=== PATIENT | male | born 1950 | race Two or more races ===

== ENCOUNTER → 2016-06-11 | Outpatient (REF) | payer MEDICARE ==
[2016-06-11 13:32] LABS: ALBUMIN 3.2 GM/DL (3.2-5.2); ALBUMIN/GLOBULIN RATIO 1.07 (1.00-1.93); ALKALINE PHOSPHATASE 102 U/L (45-117); ALT/SGPT 16 U/L (12-78); ANION GAP 7 MEQ/L (8-16); AST/SGOT 11 U/L (15-37); BILIRUBIN,TOTAL 0.3 MG/DL (0.2-1.0); BLOOD UREA NITROGEN 13 MG/DL (7-18); CALCIUM LEVEL 8.4 MG/DL (8.8-10.2); CARBON DIOXIDE LEVEL 29 MEQ/L (21-32); CHLORIDE LEVEL 105 MEQ/L (98-107); CHOLESTEROL LEVEL 146 MG/DL (<200); CREATININE FOR GFR 0.64 MG/DL (0.70-1.30); GLOMERULAR FILTRATION RATE > 60.0 (>49); GLUCOSE, FASTING 94 MG/DL (80-110); POTASSIUM SERUM 4.1 MEQ/L (3.5-5.1); SODIUM LEVEL 141 MEQ/L (136-145); TOTAL PROTEIN 6.2 GM/DL (6.4-8.2); TRIGLYCERIDES LEVEL 61 MG/DL (<150)
[2016-06-11 13:50] LABS: ADD MORPHOLOGY? YES; BASO % 0.2 % (0.0-1.0); EOS # 0.1 K/mm3 (0.0-0.50); EOS % 1.7 % (0.0-3.0); LARGE UNSTAINED CELL # 0.1 K/mm3 (0.0-0.4); LYMPH # 1.5 K/mm3 (1.5-4.5); LYMPH % 18.6 % (24.0-44.0); MEAN CORPUSCULAR HEMOGLOBIN 26.9 pg (27.0-33.0); MEAN CORPUSCULAR HGB CONC 30.5 g/dl (32.0-36.5); MEAN CORPUSCULAR VOLUME 88.2 fl (80.0-96.0); MONO # 0.3 K/mm3 (0.0-0.8); MONO % 4.6 % (0.0-5.0); NEUTROPHILS # 5.5 K/mm3 (1.8-7.7); NEUTROPHILS % 73.9 % (36.0-66.0); PLATELET COUNT, AUTOMATED 261 k/mm3 (150-450); RED CELL DISTRIBUTION WIDTH 14.9 % (11.5-14.5); WHITE BLOOD COUNT 7.4 K/mm3 (4.0-10.0)
[2016-06-11 14:10] LABS: CALCIUM OXALATE CRYSTALS SMALL
[2016-06-11 14:22] LABS: ANISOCYTOSIS 1+
[2016-06-11 14:23] LABS: HYPOCHROMASIA 2+
== END ==
LOC: M SFHCPLAZ 10:28
PROVIDERS: ATTEND Nurse Practitioner Family
DX: Z00.00 Encounter for general adult medical examination without abnormal findings (principal); I82.4Z3 Acute embolism and thrombosis of unspecified deep veins of distal lower extremity, bilateral; N40.1 Benign prostatic hyperplasia with lower urinary tract symptoms; Z13.220 Encounter for screening for lipoid disorders; Z72.0 Tobacco use; Z79.899 Other long term (current) drug therapy; Z79.82 Long term (current) use of aspirin; Z79.1 Long term (current) use of non-steroidal anti-inflammatories (NSAID)
CPT/HCPCS: 36415; 80053; 80061; 81001; 85025; G0103; G0463

== ENCOUNTER → 2016-06-27 | Outpatient (REF) | payer MEDICARE ==
[2016-06-27 15:32] LABS: RETIC HEMOGLOBIN CONTENT CHr 25.9 PG (24-36); RETICULOCYTE % ADVIA2120 1.8 % (0.5-1.5)
[2016-06-27 15:46] LABS: PERCENT SATURATION 5.3 % (19.7-37.4)
[2016-06-27 15:51] LABS: FOLATE 2.5 NG/ML
== END ==
LOC: M SFHCPLAZ 13:37
PROVIDERS: ATTEND Nurse Practitioner Family
DX: D64.9 Anemia, unspecified (principal)

== ENCOUNTER → 2016-07-16 | Outpatient (REF) | payer MEDICARE | LOC: M SFHCPLAZ 13:08 | PROVIDERS: ATTEND Family Medicine | DX: R31.9 Hematuria, unspecified (principal) | CPT/HCPCS: 81001; 81002; 85610; 87086; G0463 ==

== ENCOUNTER → 2016-08-06 | Outpatient (CLI) | payer MEDICARE | LOC: M LAB 12:24 | PROVIDERS: ATTEND Internal Medicine Gastroenterology | DX: D50.9 Iron deficiency anemia, unspecified (principal) ==

== ENCOUNTER → 2016-09-24 | Outpatient (REF) | payer MEDICARE ==
[~2016-09-24] MED LIST: ASPI81TA85 PO; COUM2TAB22 PO; FLOM5CAP PO; GABA-282 PO; SENN1TAB2 PO
[2016-09-24 15:56] LABS: CALCIUM OXALATE CRYSTALS MODERATE
== END ==
LOC: M SFHCPLAZ 15:16
PROVIDERS: ATTEND Family Medicine
DX: R31.9 Hematuria, unspecified (principal)
CPT/HCPCS: 81001; G0463

== ENCOUNTER → 2017-01-06 | Outpatient (REF) | payer MEDICARE, MEDICAID | LOC: M SFHCPLAZ 10:12 | PROVIDERS: ATTEND Family Medicine | DX: Z86.2 Personal history of diseases of the blood and blood-forming organs and certain disorders involving the immune mechanism (principal) | CPT/HCPCS: 36415; 83540; G0463 ==

== ENCOUNTER → 2017-01-19 | Outpatient (CLI) | payer MEDICARE, MEDICAID | LOC: M SMT 11:50 | PROVIDERS: ATTEND Urology | DX: R97.20 Elevated prostate specific antigen [PSA] (principal) | CPT/HCPCS: 36415; 84154; G0463 ==

== ENCOUNTER → 2017-03-03 | Outpatient (REF) | payer MEDICARE ==
[2017-03-03 16:43] LABS: ANION GAP 7 MEQ/L (8-16); BLOOD UREA NITROGEN 10 MG/DL (7-18); CALCIUM LEVEL 8.6 MG/DL (8.8-10.2); CARBON DIOXIDE LEVEL 30 MEQ/L (21-32); CHLORIDE LEVEL 101 MEQ/L (98-107); CREATININE FOR GFR 0.92 MG/DL (0.70-1.30); GLOMERULAR FILTRATION RATE > 60.0 (>49); GLUCOSE, FASTING 82 MG/DL (80-110); POTASSIUM SERUM 4.4 MEQ/L (3.5-5.1); SODIUM LEVEL 138 MEQ/L (136-145)
== END ==
LOC: M SFHCPLAZ 14:35
PROVIDERS: ATTEND Family Medicine
DX: R60.9 Edema, unspecified (principal); Z12.11 Encounter for screening for malignant neoplasm of colon

== ENCOUNTER 2019-01-15 21:29 | Emergency (ER) | payer MEDICARE ==
[~2019-01-15] VITALS: Ht 175.3 cm; Wt 111.8 kg
[~2019-01-15 21:29] MED LIST changes: +FLOM0.4C39 PO; -FLOM5CAP PO; -GABA-282 PO; +GABA-843 PO; +SENN-53 PO; -SENN1TAB2 PO
[2019-01-15] MEDS ORDERED: MORPHINE 4 MG/ML 1ML VIAL/SYRINGE (J2270) IV ONE (22:30)
[2019-01-15 23:23] LABS: BASO # 0.1 10^3/uL (0.0-0.2); BASO % 0.3 % (0.0-1.0); EOS % 0.1 % (0.0-3.0); HEMATOCRIT 55.6 % (42.0-52.0); HEMOGLOBIN 17.5 g/dl (13.5-17.5); LYMPH # 1.1 10^3/uL (1.5-5.0); LYMPH % 7.8 % (24.0-44.0); MEAN CORPUSCULAR HEMOGLOBIN 30.3 pg (27.0-33.0); MEAN CORPUSCULAR HGB CONC 31.5 g/dl (32.0-36.5); MEAN CORPUSCULAR VOLUME 96.2 fl (80.0-96.0); MONO # 0.6 10^3/uL (0.0-0.8); MONO % 4.3 % (0.0-5.0); NEUTROPHILS # 12.6 10^3/uL (1.5-8.5); PLATELET COUNT, AUTOMATED 199 10^3/uL (150-450); RED BLOOD COUNT 5.78 10^6/uL (4.30-6.10); WHITE BLOOD COUNT 14.4 10^3/uL (4.0-10.0)
[2019-01-15] MEDS ORDERED: ISOVUE-370 76% 100ML VIAL (Q9967) As Ordered ONE (23:47)
[2019-01-16 00:42] LABS: INR 2.69; PROTHROMBIN TIME 28.4 SECONDS (11.8-14.0)
--- NOTE | 2019-01-16 00:51 | REPVR ---
PROCEDURE INFORMATION: Exam: CT Angiogram of the Abdominal Aorta and Bilateral Lower Extremities (Run-off) With IV Contrast Exam date and time: 01/15/2019 11:59 PM Clinical history: 68 years old, male; Foot pain; Left; Additional info: Left leg pain/pallor; R/O arterial occlusion TECHNIQUE: Imaging protocol: CT angiogram of the abdominal aorta, pelvis and bilateral lower extremities with IV iodinated contrast. 3D rendering: MIP and 3D reconstructed images were created and reviewed. Radiation optimization: All CT scans at this facility use at least one of these dose optimization techniques: automated exposure control; mA and/or kV adjustment per patient size (includes targeted exams where dose is matched to clinical indication); or iterative reconstruction. Contrast material: ISOVUE 370; Contrast volume: 100 ml; Contrast route: IV; COMPARISON: No relevant prior studies available. FINDINGS: Aorta: Aortobiiliac stent extending through a distal abdominal aortic aneurysm which measures 5.3 x 5.2 cm in diameter. There is slight ectasia of the left common iliac artery. The stents extend to the distal common iliac arteries. Celiac trunk and mesenteric arteries: The celiac artery and visualized branches are patent. The hepatic artery originates from the SMA. The SMA and visualized branches appear normal. The SHANNON is occluded proximally but opacifies approximately 15 mm from the origin and may reflect collateral flow. Renal arteries: Single patent bilateral renal arteries. Right iliac arteries: The right iliac arteries are patent. Right femoral/popliteal arteries: The right common femoral artery is patent. There are surgical clips anterior to the right common femoral artery. The right profunda artery and branches appear normal. The right superficial femoral artery is widely patent. The right popliteal artery is patent but demonstrates faint contrast. 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 There appears to be occlusion of the distal popliteal artery at the level of the joint space with no definite distal reconstitution. 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 Left iliac arteries: The left iliac arteries are adequately patent. 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 There is good opacification of the left hypogastric artery. Direction of flow is uncertain. There is some reconstitution of the left profunda artery branches which are major supply to the left thigh. The left superficial femoral artery is occluded proximally with some reconstitution at the level of the mid thigh. The remaining superficial femoral artery is small with multifocal stenoses and appears to extend around central thrombus. The left popliteal artery demonstrates near occlusion with very small size at the periphery which may be around a central thrombus and appears to occlude by the level of the ankle joint. Left infrapopliteal arteries: In the left calf, there is subcutaneous edema with no definite distal reconstitution which may be related in part to scanning ahead of the bolus. Lungs: Minimal bibasilar fibro-atelectatic change. Liver: The liver attenuation is 49 Hounsfield units and the spleen is 68 Hounsfield units. Gallbladder and bile ducts: There are multiple gallstones and sludge in the gallbladder. Pancreas: Unremarkable. No mass. No ductal dilation. Spleen: Normal. No splenomegaly. Adrenals: Normal. No mass. Kidneys and ureters: There are bilateral renal cysts measuring up to 2.7 cm on the right. Small nonobstructing bilateral renal calculi. Stomach and bowel: There is colonic diverticulosis without evidence of diverticulitis. Appendix: A normal appendix is seen. Bladder: Unremarkable. No mass. Reproductive: Unremarkable as visualized. Intraperitoneal space: See Left Femoral/popliteal Arteries Finding. Lymph nodes: No lymphadenopathy. Bones/joints: Degenerative changes of the lumbar spine with moderate wedge compression of T12 and mild wedge configuration of L1 which appear to be chronic. Soft tissues: See Right Femoral/popliteal Arteries Finding. IMPRESSION: 1. Cholelithiasis with sludge. 2. Small nonobstructing bilateral renal calculi. 3. Aortobiiliac stent extending through a distal abdominal aortic aneurysm measuring 5.3 x 5.2 cm. No endoleak is seen. 4. Colonic diverticulosis without diverticulitis. 5. 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 No definite distal reconstitution is noted, however, there is a BK amputation with subcutaneous edema.. 6. 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 There is some reconstitution of left profunda artery branches which extends to the thigh. There is some minimal attenuation reconstitution of the distal superficial femoral artery and proximal popliteal artery which appears to be around the periphery and may be around a central thromboembolism. There is occlusion of the distal popliteal artery at the level of the knee joint with no further reconstitution in the left calf which may be related in part to scanning ahead of the bolus. Subcutaneous edema of the left calf is noted. Electronically signed by: Roberto Ortiz On 01/16/2019 00:50:48 AM
[2019-01-16 01:08] VITALS: BP 173/83
== END 2019-01-16 01:12 | disposition short-term general hospital (02) ==
LOC: M ED 21:29
DX: I74.3 Embolism and thrombosis of arteries of the lower extremities (principal); E11.9 Type 2 diabetes mellitus without complications; E78.5 Hyperlipidemia, unspecified; I73.9 Peripheral vascular disease, unspecified; Z87.891 Personal history of nicotine dependence; K57.30 Diverticulosis of large intestine without perforation or abscess without bleeding; K80.20 Calculus of gallbladder without cholecystitis without obstruction; Z95.5 Presence of coronary angioplasty implant and graft; Z79.82 Long term (current) use of aspirin; Z79.01 Long term (current) use of anticoagulants; Z79.899 Other long term (current) drug therapy; Z88.8 Allergy status to other drugs, medicaments and biological substances
CPT/HCPCS: 75635; 80047; 85025; 85610; 85730; 96374; 99285; J2270; Q9967

== ENCOUNTER 2021-11-08 16:01 | Inpatient (IN) | payer MEDICARE ==
[~2021-11-08] VITALS: Ht 175.3 cm; Wt 94.0 kg
[~2021-11-08 16:01] MED LIST changes: -ASPI81TA85 PO; +ASPI81TA86 PO; +GABA-282 PO; -GABA-843 PO
[2021-11-08 19:56] LABS: BASO # 0.1 10^3/uL (0.0-0.2); BASO % 0.5 % (0.0-1.0); EOS # 0.1 10^3/uL (0.0-0.5); EOS % 1.2 % (0.0-3.0); HEMATOCRIT 30.1 % (42.0-52.0); HEMOGLOBIN 9.3 g/dl (13.5-17.5); LYMPH # 1.4 10^3/uL (1.5-5.0); LYMPH % 14.7 % (24.0-44.0); MEAN CORPUSCULAR HEMOGLOBIN 29.5 pg (27.0-33.0); MEAN CORPUSCULAR HGB CONC 30.9 g/dl (32.0-36.5); MEAN CORPUSCULAR VOLUME 95.6 fl (80.0-96.0); MONO # 0.6 10^3/uL (0.0-0.8); NEUTROPHILS # 7.1 10^3/uL (1.5-8.5); NEUTROPHILS % 77.3 % (36.0-66.0); PLATELET COUNT, AUTOMATED 287 10^3/uL (150-450); RED BLOOD COUNT 3.15 10^6/uL (4.30-6.10); WHITE BLOOD COUNT 9.2 10^3/uL (4.0-10.0)
[2021-11-08 20:39] LABS: ERYTHROCYTE SEDIMENTATION RATE 63 mm/hr (0-20)
[2021-11-08 20:46] LABS: ALBUMIN 2.8 GM/DL (3.2-5.2); BILIRUBIN,DIRECT 0.8 MG/DL (0.0-0.2); BILIRUBIN,TOTAL 1.8 MG/DL (0.2-1.0); C REACTIVE PROTEIN QUANTITATIV 7.79 MG/DL (0.00-0.30); CALCIUM LEVEL 7.7 MG/DL (8.8-10.2); CREATININE FOR GFR 1.3 MG/DL (0.70-1.30); GLOMERULAR FILTRATION RATE 57.8 (>42); POTASSIUM SERUM 4.1 MEQ/L (3.5-5.1); TOTAL PROTEIN 6.4 GM/DL (6.4-8.2)
[2021-11-08 20:49] LABS: RBC, URINE 15-20 /hpf (0-3); SQUAMOUS EPITHELIAL CELL URINE SMALL AMOUNT /hpf (SMALL AMT); TRIPLE PHOSPHATE CRYSTAL,URINE LARGE AMOUNT /hpf
[2021-11-08 20:50] LABS: BACTERIA, URINE LARGE AMOUNT
[2021-11-08 20:55] LABS: HYALINE CAST, URINE NONE SEEN /lpf (0-1)
[2021-11-08 22:26] LABS: PARTIAL THROMBOPLASTIN TIME 100.7 SECONDS (25.9-37.0)
[2021-11-08 23:01] LABS: INR 5.36
[2021-11-08] MEDS ORDERED: cefTRIAXone SOD 1 GM in D5W MINI-BAG PLUS 50 ML IV ONE (23:10)
[2021-11-08] MEDS ORDERED: ACETAMINOPHEN TAB 650MG DOSE (2X325MG) PO PRN (23:40)
[2021-11-08] MEDS ORDERED: COLA100C5 PO (23:45)
[2021-11-08] MEDS ORDERED: WARF4TAB51 PO (23:45)
[2021-11-08] MEDS ORDERED: BAYE325T13 PO (23:45)
[2021-11-08] MEDS ORDERED: HOME MED LIST COMPLETE! XX SCH (23:50)
[2021-11-09] MEDS ORDERED: PHYTONADIONE 5 MG TAB PO ONE
[2021-11-09] MEDS ORDERED: PERCOCET 5MG/325MG TAB PO PRN ×2 (00:30)
[2021-11-09] MEDS ORDERED: ONDANSETRON 4MG ORAL DISINTEGRATING TAB PO PRN (00:30)
[2021-11-09 01:36] LABS: RSV AMPLIFICATION NEGATIVE (NEGATIVE)
[2021-11-09 02:45] VITALS: BP 131/68
[2021-11-09] MEDS ORDERED: PHENYLEPHRINE 1% PRN (04:10)
[2021-11-09] MEDS ORDERED: NEOSPORIN OINT 0.9 GM PKT TOP PRN (04:25)
[2021-11-09] MEDS ORDERED: DOCUSATE SODIUM 100MG CAPSULE PO SCH ×2 (09:00→21:00)
[2021-11-09] MEDS ORDERED: cefTRIAXone SOD 1 GM in D5W MINI-BAG PLUS 50 ML IV SCH (23:00)
[2021-11-10] MEDS ORDERED: UNRESOLVED PATIENT OWN MED ORDER XX SCH (00:01)
== END 2021-11-09 06:00 | disposition left against medical advice (07) | DRG 948 ==
LOC: M ED 16:01 → M ED INP 23:40 → ENRESERV 11-09 01:55 → M MSPAV 11-09 02:38
PROVIDERS: ADMIT Family Medicine; ATTEND Family Medicine
DX: R74.8 Abnormal levels of other serum enzymes (principal); N39.0 Urinary tract infection, site not specified; Z79.01 Long term (current) use of anticoagulants; Z86.718 Personal history of other venous thrombosis and embolism; Z89.511 Acquired absence of right leg below knee; Z88.5 Allergy status to narcotic agent; Z79.82 Long term (current) use of aspirin; Z87.891 Personal history of nicotine dependence; Z79.899 Other long term (current) drug therapy

== ENCOUNTER 2022-06-15 12:53 | Inpatient (IN) | payer MEDICARE ==
[~2022-06-15] VITALS: Ht 175.3 cm; Wt 68.8 kg
[~2022-06-15 12:53] MED LIST changes: +BAYE325T13 PO; +COLA100C5 PO; +WARF4TAB51 PO
[2022-06-15] MEDS ORDERED: NS 1,000 ML IV ONE (13:50)
[2022-06-15] MEDS ORDERED: NS 1,910 ML in IV 1 EA IV ONE (13:55)
[2022-06-15] MEDS ORDERED: cefTRIAXone SOD 2 GM in D5W MINI-BAG PLUS 50 ML IV ONE (14:00)
[2022-06-15 14:02] LABS: INR 1.7; PROTHROMBIN TIME 20.3 SECONDS (12.5-14.5)
[2022-06-15 14:06] LABS: BASO % 0.2 % (0.0-1.0); HEMATOCRIT 33.8 % (42.0-52.0); HEMOGLOBIN 10.7 g/dl (13.5-17.5); LYMPH # 0.8 10^3/uL (1.5-5.0); LYMPH % 16.8 % (24.0-44.0); MEAN CORPUSCULAR HEMOGLOBIN 36.8 pg (27.0-33.0); MEAN CORPUSCULAR HGB CONC 31.7 g/dl (32.0-36.5); MEAN CORPUSCULAR VOLUME 116.2 fl (80.0-96.0); MONO # 0.2 10^3/uL (0.0-0.8); MONO % 3.4 % (2.0-8.0); NEUTROPHILS # 3.9 10^3/uL (1.5-8.5); NEUTROPHILS % 78.8 % (36.0-66.0); PLATELET COUNT, AUTOMATED 49 10^3/uL (150-450); RED BLOOD COUNT 2.91 10^6/uL (4.30-6.10); WHITE BLOOD COUNT 4.9 10^3/uL (4.0-10.0)
[2022-06-15 14:11] LABS: RSV AMPLIFICATION NEGATIVE (NEGATIVE)
[2022-06-15 14:18] LABS: ABG BASE EXCESS -7.2 (-2.0-2.0); ABG HCO3 16.8 MEQ/L (22.0-26.0); ABG O2 SATURATION 98.7 % (95.0-99.0); ABG PARTIAL PRESSURE CO2 29.2 mmHg (35.0-45.0); ABG PARTIAL PRESSURE O2 154.8 mmHg (75.0-100.0); ABG STANDARD HCO3 18.6 MEQ/L (22.0-26.0); ABG TOTAL CO2 17.7 MEQ/L (23.0-31.0); ABG pH (ARTERIAL) 7.378 UNITS (7.350-7.450)
[2022-06-15 14:22] LABS: BLOOD UREA NITROGEN 146 MG/DL (9-23); CALCIUM LEVEL 8.3 MG/DL (8.3-10.6); CARBON DIOXIDE LEVEL 20 MMOL/L (20-31); CHLORIDE LEVEL 118 MMOL/L (98-107); GLOMERULAR FILTRATION RATE 16.7 (>42); GLUCOSE, FASTING 114 MG/DL (74-106); POTASSIUM SERUM 5.2 MMOL/L (3.5-5.1); SODIUM LEVEL 152 MMOL/L (136-145)
[2022-06-15 14:34] LABS: PARTIAL THROMBOPLASTIN TIME 26.7 SECONDS (24.8-34.2)
[2022-06-15 14:41] LABS: APPEARANCE, URINE CLOUDY (CLEAR); BACTERIA, URINE AUTO 1+ (NEGATIVE); BILIRUBIN, URINE AUTO NEGATIVE (NEGATIVE); BLOOD, URINE BLOOD 3+ (NEGATIVE); COLOR, URINE AMBER (YELLOW); GLUCOSE, URINE (UA) AUTO 1+ mg/dL (NEGATIVE); KETONE, URINE AUTO NEGATIVE (NEGATIVE); LEUKOCYTE ESTERASE, URINE AUTO 2+ (NEGATIVE); MUCUS, URINE MODERATE (NEGATIVE); NITRITE, URINE AUTO NEGATIVE (NEGATIVE); PROTEIN, URINE AUTO 2+ mg/dL (NEGATIVE); RBC, URINE AUTO TNTC /HPF (0-3); SPECIFIC GRAVITY URINE AUTO 1.017 (1.002-1.035); SQUAMOUS EPITHELIAL CELL UR AU 5 /HPF (0-6); WBC, URINE AUTO TNTC /HPF (0-3)
[2022-06-15 15:05] LABS: C REACTIVE PROTEIN QUANTITATIV < 0.40 MG/DL (<1.0)
[2022-06-15 15:06] LABS: AMYLASE 143 U/L (30-118)
[2022-06-15 15:09] LABS: ALBUMIN 3.5 G/DL (3.2-5.2); ALKALINE PHOSPHATASE 60 U/L (46-116); ALT/SGPT < 9 U/L (7.0-40); AST/SGOT 29 U/L (<34); BILIRUBIN,DIRECT 1.6 MG/DL (<0.4); CK-MB VALUE MASS < 1.0 NG/ML (<3.6); CPK CREATINE PHOSPHOKINASE 42 U/L (46-171); MB/CK RELATIVE INDEX 2.38 (< OR =4); TOTAL PROTEIN 6.7 G/DL (5.7-8.2)
[2022-06-15] MEDS ORDERED: ACETAMINOPHEN TAB 650MG DOSE (2X325MG) PO PRN (15:55)
[2022-06-15] MEDS ORDERED: IPRATROPIUM 0.5MG/ALBUTEROL 2.5MG INH SOL UD 3ML (DUONEB) NEB PRN (15:55)
[2022-06-15] MEDS ORDERED: SENOKOT S TAB PO PRN (15:55)
[2022-06-15] MEDS ORDERED: GLUCOSE 4GM CHEW TABLET PO PRN (15:55)
[2022-06-15] MEDS ORDERED: GLUCAGON INJ 1MG VIAL SC PRN (15:55)
[2022-06-15] MEDS ORDERED: NS 0.45% 1,000 ML IV SCH (15:55)
[2022-06-15] MEDS ORDERED: DEXTROSE 50% 50ML SYRINGE IV PRN (15:55)
[2022-06-15] MEDS ORDERED: med rec comment (17:18)
[2022-06-15] MEDS ORDERED: HOME MED LIST COMPLETE! XX SCH (17:20)
[2022-06-15 19:00] VITALS: BP 90/51
[2022-06-15 20:00] VITALS: O2SAT 98
[2022-06-15] MEDS: INSULIN LISPRO (NovoLOG) PER UNIT SC SCH ×2 (20:02→20:32)
[2022-06-15] MEDS: FLEET ENEMA PR SCH ×2 (20:03→22:31)
[2022-06-15 21:21] LABS: CALCIUM LEVEL 6.9 MG/DL (8.3-10.6); CREATININE FOR GFR 3.38 MG/DL (0.70-1.30); GLOMERULAR FILTRATION RATE 19.1 (>42); POTASSIUM SERUM 3.8 MMOL/L (3.5-5.1)
[2022-06-15 22:00] VITALS: O2SAT 96
[2022-06-15 22:29] VITALS: BP 92/58
[2022-06-15 23:00] VITALS: O2SAT 98
[2022-06-15] MEDS ORDERED: D5W 1,000 ML IV SCH (23:00)
[2022-06-16] VITALS (22 sets, daily range): BP systolic 86–104; BP diastolic 47–60; O2SAT 96–98
[2022-06-16] MEDS ORDERED: NS 0.45% 1,000 ML IV SCH (02:25)
[2022-06-16 07:03] LABS: HEMATOCRIT 28.3 % (42.0-52.0); MEAN CORPUSCULAR HEMOGLOBIN 36.6 pg (27.0-33.0); MEAN CORPUSCULAR HGB CONC 30.7 g/dl (32.0-36.5); RED BLOOD COUNT 2.38 10^6/uL (4.30-6.10); WHITE BLOOD COUNT 5.7 10^3/uL (4.0-10.0)
[2022-06-16 07:12] LABS: MEAN CORPUSCULAR VOLUME 118.9 fl (80.0-96.0); PLATELET COUNT, AUTOMATED 35 10^3/uL (150-450)
[2022-06-16 07:13] LABS: INR 1.78
[2022-06-16 07:14] LABS: HEMOGLOBIN 8.7 g/dl (13.5-17.5)
[2022-06-16] MEDS: INSULIN LISPRO (NovoLOG) PER UNIT SC SCH ×4 (07:30→21:00)
[2022-06-16 07:33] LABS: ALBUMIN 2.8 G/DL (3.2-5.2); BILIRUBIN,TOTAL 2.2 MG/DL (0.3-1.2); CALCIUM LEVEL 7.1 MG/DL (8.3-10.6); CREATININE FOR GFR 3.04 MG/DL (0.70-1.30); GLOMERULAR FILTRATION RATE 21.6 (>42); POTASSIUM SERUM 3.3 MMOL/L (3.5-5.1); TOTAL PROTEIN 5.3 G/DL (5.7-8.2)
[2022-06-16] MEDS ORDERED: KCL 10MEQ/100ML SWI (KRUN) 10 MEQ in IV 1 EA IV ONE (07:55)
[2022-06-16] MEDS: NICOTINE 14 MG/24 HR TRANSDERMAL TD SCH (09:15)
[2022-06-16] MEDS: FLEET ENEMA PR SCH ×2 (09:15→22:01)
[2022-06-16 09:19] LABS: PERCENT SATURATION 43.3 % (19.7-50.0)
[2022-06-16 09:22] LABS: FERRITIN 68.6 NG/ML (10.5-307.3); FOLATE 0.8 NG/ML (>5.4)
[2022-06-16] MEDS: KCL 20MEQ IN D5W 1000ML 1,000 ML IV SCH ×3 (10:43→19:46)
[2022-06-16 11:21] LABS: BASO % 0.2 % (0.0-1.0); EOS % 0.4 % (0.0-3.0); LYMPH # 0.9 10^3/uL (1.5-5.0); LYMPH % 16.2 % (24.0-44.0); MONO # 0.2 10^3/uL (0.0-0.8); MONO % 2.6 % (2.0-8.0); NEUTROPHILS # 4.5 10^3/uL (1.5-8.5); NEUTROPHILS % 79.7 % (36.0-66.0)
[2022-06-16] MEDS: cefTRIAXone SOD 1 GM in D5W MINI-BAG PLUS 50 ML IV SCH (14:08)
[2022-06-16 17:22] LABS: CREATININE FOR GFR 2.66 MG/DL (0.70-1.30); GLOMERULAR FILTRATION RATE 25.2 (>42); POTASSIUM SERUM 3.8 MMOL/L (3.5-5.1)
[2022-06-17] VITALS (10 sets, daily range): BP systolic 68–95; BP diastolic 40–60
[2022-06-17] MEDS ORDERED: LR 1,000 ML IV ONE (00:55)
[2022-06-17] MEDS: KCL 20MEQ IN D5W 1000ML 1,000 ML IV SCH ×3 (05:15→22:59)
[2022-06-17] MEDS: INSULIN LISPRO (NovoLOG) PER UNIT SC SCH ×4 (07:30→20:40)
[2022-06-17] MEDS ORDERED: FLEET ENEMA PR PRN (08:10)
[2022-06-17 08:13] LABS: EOS # 0.1 10^3/uL (0.0-0.5); EOS % 0.8 % (0.0-3.0); HEMATOCRIT 27.6 % (42.0-52.0); HEMOGLOBIN 8.6 g/dl (13.5-17.5); LYMPH % 16.1 % (24.0-44.0); MEAN CORPUSCULAR HEMOGLOBIN 37.2 pg (27.0-33.0); MEAN CORPUSCULAR HGB CONC 31.2 g/dl (32.0-36.5); MONO # 0.1 10^3/uL (0.0-0.8); MONO % 1.5 % (2.0-8.0); NEUTROPHILS % 81.1 % (36.0-66.0); RED BLOOD COUNT 2.31 10^6/uL (4.30-6.10); WHITE BLOOD COUNT 6.2 10^3/uL (4.0-10.0)
[2022-06-17 08:14] LABS: MEAN CORPUSCULAR VOLUME 119.5 fl (80.0-96.0); PLATELET COUNT, AUTOMATED 26 10^3/uL (150-450)
[2022-06-17 08:45] LABS: ALBUMIN 2.6 G/DL (3.2-5.2); BILIRUBIN,TOTAL 1.8 MG/DL (0.3-1.2); CALCIUM LEVEL 7.2 MG/DL (8.3-10.6); MAGNESIUM LEVEL 2.5 MG/DL (1.8-2.4); POTASSIUM SERUM 3.6 MMOL/L (3.5-5.1); TOTAL PROTEIN 5.1 G/DL (5.7-8.2)
[2022-06-17] MEDS: NICOTINE 14 MG/24 HR TRANSDERMAL TD SCH (09:34)
[2022-06-17] MEDS: FOLIC ACID 1 MG in NS 50 ML IV SCH (11:00)
[2022-06-17] MEDS: cefTRIAXone SOD 1 GM in D5W MINI-BAG PLUS 50 ML IV SCH (14:15)
[2022-06-17] MEDS ORDERED: LR 1,000 ML IV STA (20:29)
[2022-06-18] VITALS: BP 70/52
[2022-06-18 01:30] VITALS: BP 68/48
[2022-06-18 02:45] VITALS: BP_SYST 62
[2022-06-18] MEDS ORDERED: NS 500 ML IV ONE (02:45)
[2022-06-18 02:50] VITALS: BP 72/46
[2022-06-18 02:54] VITALS: BP 80/60
[2022-06-18] MEDS ORDERED: MIDODRINE 5 MG TAB PO ONE (03:00)
[2022-06-18] MEDS ORDERED: MORPHINE 2 MG/ML 1ML VIAL IV PRN (03:15)
[2022-06-18] MEDS ORDERED: SCOPOLAMINE 1MG TRANSDERMAL PATCH TOP PRN (03:15)
[2022-06-18] MEDS: NICOTINE 14 MG/24 HR TRANSDERMAL TD SCH (09:43)
[2022-06-18] MEDS: FOLIC ACID 1 MG in NS 50 ML IV SCH (11:00)
[2022-06-19] MEDS: NICOTINE 14 MG/24 HR TRANSDERMAL TD SCH (09:02)
[2022-06-20] MEDS: NICOTINE 14 MG/24 HR TRANSDERMAL TD SCH (08:56)
[2022-06-20] MEDS: MORPHINE 10MG/0.5ML ORAL CONCENTRATE SOLUTION U/D SL PRN (15:16)
[2022-06-21] MEDS: NICOTINE 14 MG/24 HR TRANSDERMAL TD SCH (09:04)
[2022-06-22] MEDS: MORPHINE 10MG/0.5ML ORAL CONCENTRATE SOLUTION U/D SL PRN ×3 (06:03→18:03)
[2022-06-22] MEDS: NICOTINE 14 MG/24 HR TRANSDERMAL TD SCH (08:27)
[2022-06-23] MEDS: MORPHINE 10MG/0.5ML ORAL CONCENTRATE SOLUTION U/D SL PRN (03:14)
[2022-06-23] MEDS: NICOTINE 14 MG/24 HR TRANSDERMAL TD SCH (08:54)
== END 2022-06-23 12:03 | disposition expired | DRG 682 ==
LOC: EDBD 12:53 → M ED 12:53 → M ED INP 15:53 → M PCU 20:05 → M MSPAV 06-18 16:13
PROVIDERS: ADMIT Family Medicine; ATTEND Student in an Organized Health Care Education/Training Program
DX: N17.9 Acute kidney failure, unspecified (principal); A41.9 Sepsis, unspecified organism; G93.41 Metabolic encephalopathy; E43 Unspecified severe protein-calorie malnutrition; E87.20 Acidosis, unspecified; E87.1 Hypo-osmolality and hyponatremia; N39.0 Urinary tract infection, site not specified; E87.0 Hyperosmolality and hypernatremia; I73.9 Peripheral vascular disease, unspecified; D69.6 Thrombocytopenia, unspecified; E87.5 Hyperkalemia; N20.0 Calculus of kidney; J44.9 Chronic obstructive pulmonary disease, unspecified; D64.9 Anemia, unspecified; E11.22 Type 2 diabetes mellitus with diabetic chronic kidney disease; I95.9 Hypotension, unspecified; I12.9 Hypertensive chronic kidney disease with stage 1 through stage 4 chronic kidney disease, or unspecified chronic kidney disease; E11.51 Type 2 diabetes mellitus with diabetic peripheral angiopathy without gangrene; N18.30 Chronic kidney disease, stage 3 unspecified; R57.1 Hypovolemic shock